=== PATIENT | female | born 1970 | race Asian ===

== ENCOUNTER 2023-08-18 08:23 | Outpatient (REF) | payer MEDICAID, OTHER, SELFPAY ==
[2023-08-18 15:04] LABS: Alanine Aminotransferase 23 U/L (0-31); Albumin Level 4.4 g/dL (3.5-5.0); Alkaline Phosphatase 50 U/L (39-117); Anion Gap 13 (12-20); Aspartate Amino Transferase 23 U/L (5-31); Bilirubin Direct 0.2 mg/dL (0.0-0.5); Bilirubin Total 0.6 mg/dL (0.0-1.0); Blood Urea Nitrogen 7 mg/dL (9-16); Calcium 9.8 mg/dL (8.4-10.2); Carbon Dioxide 27 mmol/L (22-29); Chloride 106 mmol/L (96-108); Cholesterol 286 mg/dL (<200); Estimated Glomerular Filt Rate > 60; Glucose Fasting 81 mg/dL (60-99); HDL Cholesterol 55 mg/dL (>40); LDL Cholesterol Calculated 195 mg/dL (<100); Potassium 4.1 mmol/L (3.3-5.1); Sodium 142 mmol/L (135-145); Total Protein 7.3 g/dL (6.5-8.0); Triglycerides 182 mg/dL (<150)
[2023-08-19 08:22] LABS: ~HepC Num1 0.04 S/CO (0.00-0.79); ~Hepatitis C Antibody Nonreactive (Nonreactive)
[2023-08-22 17:33] LABS: HIV RNA PCR Qn Copies Not Detected Copies/mL; HIV RNA PCR Qn Log Copies Not Detected Log cps/mL
== END 2023-08-18 08:24 | disposition home or self-care (01) ==
LOC: HO.CHCLDS 08:23
PROVIDERS: Visit Provider Student in an Organized Health Care Education/Training Program
DX: Z00.00 Encounter for general adult medical examination without abnormal findings (principal)
CPT/HCPCS: 36415; 80048; 80061; 80076; 86803; 87536; 87900

== ENCOUNTER 2025-04-16 08:11 | Outpatient (REF) | payer MEDICAID, OTHER, SELFPAY ==
--- OUTSIDE RECORDS SUMMARY | 2025-04-16 08:18 | XMS_ITS | Clinical Summary ---
Author Organization [employer] Address [address] [facility] 7t [place] [address] Care Team Providers Care Cargo Broker Name Role Phone Kelly Hsieh MD Primary Care Provider [phone] Allergies No known active allergies Medications multivitamin (Theragran) tablet Take 1 tablet by mouth at bed time. 03/08/2019 Active cyclobenzaprine (Flexeril) 10 MG tablet Take 1 tablet (10 mg) by mouth 3 times daily for 10 days. 30 tablet 08/03/2023 Active Magnesium 100 MG capsule Take 1 cap qhs 90 capsule 3 04/11/2025 Active Active Problems No known active problems Encounters Date Type Department Care Team Description 04/11/2025 10:45 AM EDT Office Visit [facility] [address] [place] [address] Kelly Hsieh MD Other fatigue (Primary Dx); Vitamin D deficiency 04/11/2025 Travel 04/08/2025 10:00 AM EDT Office Visit [facility] [address] [place] [address] Marissa Thomas 04/05/2025 11:00 AM EDT Office Visit [facility] [address] [place] [address] Charlene Gonzalez 04/05/2025 Telephone [facility] [address] [place] [address] Kelly Hsieh MD Appointment Request from Last 3 Months Immunizations Immunization Administration Dates Next Due Influenza injectable quadrivalent preservative f ree 10/18/2022,02/23/2019 Meningococcal MCV4, Unspecified 01/10/2019 Social History Tobacco Use Types Packs/Day Years Used Date Smoking Tobacco: Never Smokeless Tobacco: Never Tobacco Cessation:Counseling Given: Not Answered Alcohol Use Standard Drinks/Week Comments Defer 0 (1 standard drink = 0.6 oz pur e alcohol) Depression Answer Date Recorded Patient Health Questionnaire-9 Score 6 11/08/2024 Patient Health Questionnaire-9 Score 6 11/08/2024 Last PHQ-9: Questionnaire Data Not on file 1 01/09/2024 Housing Stability Answer Date Recorded What is your housing situation today? I have jorge little 10/29/[address] you li ve. Do you have problems with any of the following? None of the above 10/29/2024 Food Insecurity Answer Date Recorded Within the past 12 months, y ou worried that your food would run out before you got money to buy more: Never True 10/29/2024 Within the past 12 months,th e food you bought just didn't last and you didn't have enough money to get more: Never True 12/2023 Transportation Answer Date Recorded In the past 12 months, has l ack of transportation kept you from medical appts, meetings, work or from getting things needed for daily living? No 10/29/2024 Utilities Answer Date Recorded In the past 12 months, has t he electric, gas, oil or water company threatened to shut off services in your home? No 10/29/2024 Depression Answer Date Recorded Patient Health Questionnaire-2 Score 0 11/08/2024 Internet Access Answer Date Recorded Internet Access Q1 Yes 10/29/2024 Internet Access Q2 Not on file 10/29/2024 Comments No Sex and Gender Information Value Date Recorded Sex Assigned at Female 09/27/2022 10:27 AM EDT Legal Sex Female 10:27 AM EDT Gender Identity Female 09/27/2022 10:27 AM EDT Sexual Orientation Straight 09/27/2022 10 :27 AM EDT Last Filed Vital Signs Vital Sign Reading Time Taken Comments Blood Pressure 121/76 04/11/2025 10:50 AM EDT Pulse 65 04/11/2025 10:50 AM EDT Temperature 36.4 ??C (97.6 ??F) 04/11/2025 10:50 AM E DT Respiratory Rate 18 04/11/2025 10:50 AM EDT Oxygen Saturation 98% 04/11/2025 10:50 AM EDT Inhaled Oxygen Concentration - - Weight 57.6 kg (127 lb) 04/11/2025 10:50 AM EDT Height 152.4 cm (5') 04/11/2025 10:50 AM EDT Body Mass Index 24.8 04/11/2025 10:50 AM EDT Plan of Treatment Upcoming Encounters Date Type Department Care Team (Late st Contact Info) Description 05/21/2025 8:45 AM EDT Office Visit [facility] [address] [place] [address] Kelly Hsieh MD [address] [place] [address] Health Maintenance Due Date Last Done Comments CT Colonography 1970 Colonoscopy 1970 Dental X-Ray: Full Mouth 1970 FIT 1970 FOBT 1970 HIV Screening 1970 Sigmoidoscopy 1970 Alcohol/Substance Use Screening 1982 Hepatitis B Vaccines (1 of 3 - 19+ 3-dose series) 1989 Mammogram 2010 Pneumococcal Vaccine: 50+ Years (1 of 1 - PCV) 2020 Zoster Vaccines (1 of 2) 2020 Pap Smear 01/26/2025 01/26/2022 DTaP/Tdap/Td Vaccines (2 - Td or Tdap) 02/13/2025 02/13/2015 Influenza Vaccine (#1) 2025 10/18/2022, 2018 Postponed from 07/29/2024 (Patient Refused) Dental Prophylaxis 10/07/2025 04/05/2025, 1 12/15/2023, 07/07/2023 Dental Oral Exam 10/10/2025 04/08/2025, , 07/07/2023 Dental X-Ray: Bitewings 10/16/2025 10/15/20 24, 10/12/2024, 07/07/2023 SDOH Screening 10/29/2025 10/29/2024 COVID-19 Vaccine (5 - 4-25 season) 2025 10/18/2022, 09/30/2021, 03/12/2021, Additional history exists Postponed from 07/29/2024 (Patient Refused) Depression Screening 11/08/2025 11/08/2024, 11/08/20 24 Disability Screening 11/08/2025 11/08/2024 Tobacco Screening 04/08/2026 04/08/2025 Cervical Cancer Screening 01/26/2027 HPV/Cotest 01/26/2027 01/26/2022 Colorectal Cancer Screening 12/10/2027 FIT DNA/Cologuard 12/10/2027 12/10/2024 RSV Patients and Patients Aged 60 years or older (1 - 1-dose 75+ series) 2045 Meningococcal Vaccine Aged Out 01/10/2019 No trever gurvinder eligible based on patient's age to complete this topic Hepatitis C Screening Completed 08/18/2023 HIB Vaccines Aged Out No longer eligi ble based on patient's age to complete this topic HPV Vaccines Aged Out No longer eligi ble based on patient's age to complete this topic Hepatitis A Vaccines Aged Out No long er eligible based on patient's age to complete this topic IPV Vaccines Aged Out No longer eligi ble based on patient's age to complete this topic Meningococcal B Vaccine Aged Out No l onger eligible based on patient's age to complete this topic RSV under 20 months Aged Out No longe r eligible based on patient's age to complete this topic Rotavirus Vaccines Aged Out No longer eligible based on patient's age to complete this topic Procedures Procedure Name Priority Date/Time Associated Diagnosis Comments CASE PRESENTATION, DETAILED AND EXTENSIVE TREATMENT PLANNING Routine 04/08/2025 10:00 AM EDT PERIODIC ORAL EVALUATION - ESTABLISHED PATIENT Routine 04/08/2025 10:00 AM EDT ORAL HYGIENE INSTRUCTIONS Routine 04/05/2025 11:00 AM EDT CASE PRESENTATION, DETAILED AND EXTENSIVE TREATMENT PLANNING Routine 04/05/2025 11:00 AM EDT PROPHYLAXIS - ADULT Routine 04/05/2025 1 1:00 AM EDT LAB COLOGUARD?? COLON CANCER SCREEN Routine 12/10/2024 12:30 PM EST Screening for colon cancer BITEWINGS - 4 RADIOGRAPHIC IMAGES Routine 10/15/2024 10:30 AM EST HEPATITIS C AB W/REFL TO HCV RNA, QN, PCR Routine 08/18/2023 8:29 AM EDT PE (physical exam), annual THINPREP IMAGING PAP AND HPV MRNA E6/E7 WITH REFLEX TO HPV 16,18/45 Routine 01/26/2022 8:49 AM EST from Last 3 Months or Most Recently Relevant to Health Maintenance Results * Cologuard?? colon cancer screening (12/10/2024 12:30 PM EST) Cologuard Result Negative Negative 12/15/19 12:43 AM EST [facility] (CLIA #:[id number]) Comment: NEGATIVE TEST RESULT. A negative Cologuard result indicates a low likelihood that a colorectal cancer (CRC) or advanced adenoma (adenomatous polyps with more advanced pre-malignant features) ??is present. The chance that a person with a negative Cologuard test has a colorectal cancer is less than 1 in 1500 (negative predictive value >99.9%) or has an ??advanced adenoma is less than ??5.3% (negative predictive value 94.7%). These data are based on a prospective cross-sectional study of 10,000 individuals at average risk for colorectal cancer who were screened with both Cologuard and colonoscopy. (Holly Castellanos al, N Engl J Med 2014;370(14):1286- 1297) The normal value (reference range) for this assay is negative. COLOGUARD RE-SCREENING RECOMMENDATION: Periodic colorectal cancer screening is an important part of preventive healthcare for asymptomatic individuals at average risk for colorectal cancer. ??Following a negative Cologuard result, the [place] [employer] and U.S. Multi-Society Task Force screening guidelines recommend a Cologuard re-screening interval of 3 years. References: [place] [employer] Guideline for Colorectal Cancer Screening: https://www.cancer.org/cancer/vfkwi-iofhjz-upmbfa/hahvnubey-qgjjcgkqd-dfsdvfi/ac s-rec ommendations.html.; Obie DK, Baron CR, Richard ChristiansonK, Colorectal Cancer Screening: Recommendations for Physicians and Patients from the U.S. Multi-Society Task Force on Colorectal Cancer Screening , Am J Gastroenterology 2017; 112:3611-8407. TEST DESCRIPTION: Composite algorithmic analysis of stool DNA-biomarkers with hemoglobin immunoassay. ?? Quantitative values of individual biomarkers are not reportable and are not associated with individual biomarker result reference ranges. Cologuard is intended for colorectal cancer screening of adults of either sex, 45 years or older, who are at average-risk for colorectal cancer (CRC). Cologuard has been approved for use by the U.S. FDA. The performance of Cologuard was established in a cross sectional study of average-risk adults aged 50-84. Cologuard performance in patients ages 45 to 49 years was estimated by sub-group analysis of near-age groups. Colonoscopies performed for a positive result may find as the most clinically significant lesion: colorectal cancer [4.0%], advanced adenoma (including sessile serrated polyps greater than or equal to 1cm diameter) [20%] or non- advanced adenoma [31%]; or no colorectal neoplasia [45%]. These estimates are derived from a prospective cross-sectional screening study of 10,000 individuals at average risk for colorectal cancer who were screened with both Cologuard and colonoscopy. (Holly Asher. et al, N Engl J Med 2014;370(14):3804-3779.) Cologuard may produce a false negative or false positive result (no colorectal cancer or precancerous polyp present at colonoscopy follow up). A negative Cologuard test result does not guarantee the absence of CRC or advanced adenoma (pre-cancer). The current Cologuard screening interval is every 3 years. ([place] [employer] and U.S. Multi-Society Task Force). Cologuard performance data in a 10,000 patient pivotal study using colonoscopy as the reference method can be accessed at the following location: [email or web address].com/results. Additional description of the Cologuard test process, warnings and precautions can be found at www.cologYesmailrd.com. Stool specimen (specimen) Rectal contents / Unknown 12/10/2024 12:30 PM EST 12/11/2024 11:01 AM EST us Kelly Hsieh MD LAB MOLECULAR DIAGNOSTICS ORDERA BLES Final Result [facility] (CLIA #:[id number]) [place] [address], * Hepatitis C Antibody with Reflex to HCV, RNA, Quantitative, Real-Time PCR (08/18/2023 8:29 AM EDT) Hepatitis C Antibody Nonreactive Nonreactive [facility] Comment:Antibodies to HCV no t detected; does not exclude early acuteHCV infection. Blood Venous blood specimen / Unknown 08/18/2023 8:29 AM EDT 08/18/2023 2:08 PM EDT Kelly Hsieh MD LAB BLOOD ORDERABLES Final Resul t Performing Organization Address [facility] Co de Phone Number [facility] [address] [place] [phone] * THINPREP TIS PAP AND HPV mRNA E6/E7 WITH REFLEX TO HPV 16,18/45 (01/26/2022 8:49 AM EST) Clinical Information: None given [facility] COMMENT SEE COMMENT [facility] Comment: EXPLANATORY NOTE: ? The Pap is a screening test for cervical cancer. It is ?? not a diagnostic test and is subject to false negative ?? and false positive results. It is most reliable when a ?? satisfactory sample, regularly obtained, is submitted ?? with relevant clinical findings and history, and when ?? the Pap result is evaluated along with historic and ?? current clinical information. ?? COMMENT: This Pap test has been evaluated with computer assisted technology. [facility] Van Cdl Driver: SEE COMMENT [facility] Comment: GSG, CT(ASCP) CT screening location: [address] ??[address] HPV nRNA E6/E7 Not Detected Not Detected [facility] Comment: Methodology: Marble Coper-Mediated Amplification This assay detects E6/E7 viral messenger RNA (mRNA) from 14 high-risk HPV types (16,18,31,33,35,39,45,51,52,56,58,59,66,68). ? The analytical performance characteristics of this assay have been determined by [employer]. The modifications have not been cleared or approved by the FDA. This assay has been validated pursuant to the CLIA regulations and is used for clinical purposes. ?? 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 [facility] Interpretation/Re sult: Negative for intraepithelial lesion or malignancy. [facility] LMP: 01/10/22 [facility] Prev. BX: NONE GIVEN [facility] Prev. PAP: 2015 [facility] SOURCE: None given [facility] Statement Of Adequacy: SEE COMMENT [facility] Comment: Satisfactory for evaluation. Endocervical/transformation zone component present. 01/26/2022 8:49 AM EST us Urmila Burnett [facility] PATHOLOGY ORDERABLES Final Result [facility] [address] from Last 3 Months or Most Recently Relevant to Health Maintenance Insurance [facility] DENTAL - HSN PARTIAL (MEDICAID) Care Teams Cargo Broker Relationship Specialty Start Date End Date Kelly Hsieh MD [address] [place] [phone] PCP - General Family Medicine 12/07/21
--- OUTSIDE RECORDS SUMMARY | 2025-04-16 08:18 | XMS_ITS | Encounter Summary ---
Author Organization [employer] Address [address] [facility] 7t [place] [address] Care Team Providers Care Demurrage Worker Name Role Phone Kelly Hsieh MD Primary Care Provider [phone] Encounter Details Date Type Department Care Team (Latest Contact Info) Description 08/02/[address] [facility] CONVERSIONS Dental, Provider, DDS Social History Tobacco Use Types Packs/Day Years Used Date Smoking Tobacco: Never Assessed Comments Unknown Sex and Gender Information Value Date Recorded Sex Assigned at Female 09/27/2022 10:27 AM EDT Legal Sex Female 10:27 AM EDT Gender Identity Female 09/27/2022 10:27 AM EDT Sexual Orientation Straight 09/27/2022 10 :27 AM EDT documented as of this encounter Plan of Treatment Upcoming Encounters Date Type Department Care Team (Late st Contact Info) Description 05/21/2025 8:45 AM EDT Office Visit [facility] MED & PEDS [address] [place] [address] Kelly Hsieh MD [address] [place] [address] documented as of this encounter Visit Diagnoses Not on filedocumented in this encounter Care Teams Demurrage Worker Relationship Specialty Start Date End Date Kelly Hsieh MD [address] [place] [phone] PCP - General Family Medicine 12/07/21 documented as of this encounter
--- OUTSIDE RECORDS SUMMARY | 2025-04-16 08:18 | XMS_ITS | Encounter Summary ---
Author Organization [employer] Address [address] [facility] [address] [place] [address] Care Team Providers Care Roller Operator Name Role Phone Kelly Hsieh MD Primary Care Provider [phone] Encounter Details Date Type Department Care Team (Latest Contact Info) Description 04/11/2025 Travel Social History Tobacco Use Types Packs/Day Years Used Date Smoking Tobacco: Never Smokeless Tobacco: Never Alcohol Use Standard Drinks/Week Comments Defer 0 [...] Description 05/21/2025 8:45 AM EDT Office Visit [facility] MED & PEDS [address] [place] [address] Kelly Hsieh MD [address] [place] [address] documented as of this encounter Visit Diagnoses Not on filedocumented in this encounter Additional Health Concerns Assessment Noted Time PHQ-9 Depression Total Score: 6 11/08/20 24 9:52 AM EST documented as of this encounter Care Teams Roller Operator Relationship Specialty Start Date End Date Kelly Hsieh MD [address] [place] [phone] PCP - General Family Medicine 12/07/21 documented as of this encounter
--- OUTSIDE RECORDS SUMMARY | 2025-04-16 08:18 | XMS_ITS | Encounter Summary ---
Author Organization [employer] Address [address] [facility] [address] [place] [address] Care Team Providers Care Optician Manager Name Role Phone Kelly Hsieh MD Primary Care Provider [phone] Reason for Visit * Reason Comments Fatigue joint pain warts Encounter Details Date Type Department Care Team ([facility] st Contact Info) Description 04/11/2025 10:45 AM EDT Office Visit [facility] MED & PEDS [address] [place] [address] Kelly Hsieh MD [address] [place] [address] Other fatigue (Primary Dx); Vitamin D deficiency Social History Tobacco Use Types Packs/Day Years [...] AM EDT documented as of this encounter Last Filed Vital Signs Vital Sign Reading [...] Mass Index 24.8 04/11/2025 10:50 AM EDT documented in this encounter Progress Notes * Kelly Hsieh MD - 04/11/2025 10:45 AM EDT Subjective Patient ID: Christopher Pereira is a 54 y.o. female who presents for fatigue Fatigue This is a new problem. The current episode started more than 1 month ago. The problem occurs constantly. Associated symptoms include fatigue. Pertinent negatives include no abdominal pain, anorexia, arthralgias, change in bowel habit, chest pain, chills, congestion, coughing, diaphoresis, fever, headaches, joint swelling, nausea, sore throat, swollen glands, urinary symptoms, vertigo, visual change, vomiting or weakness. Review of Systems Constitutional: Positive for fatigue. Negative for chills, diaphoresis and fever. HENT: Negative for congestion and sore throat. Respiratory: Negative for cough. Cardiovascular: Negative for chest pain. Gastrointestinal: Negative for abdominal pain, anorexia, change in bowel habit, nausea and vomiting. Musculoskeletal: Negative for arthralgias and joint swelling. Neurological: Negative for vertigo, weakness and headaches. Objective Physical Exam Constitutional: Appearance: Normal appearance. Cardiovascular: Rate and Rhythm: Normal rate and regular rhythm. Pulses: Normal pulses. Heart sounds: Normal heart sounds. Pulmonary: Effort: Pulmonary effort is normal. Abdominal: General: Abdomen is flat. Neurological: Mental Status: She is alert. Assessment/Plan Diagnoses and all orders for this visit: Other fatigue Comments: Labs ordered advised healthy diet and regular exercise Started on Daily magnesium Orders: - Basic Metabolic Panel; Future - Lipid Panel, Standard; Future - Hepatic Function Panel; Future - TSH with Reflex to Free T4; Future - CBC auto differential; Future Vitamin D deficiency Comments: Labs ordered advised daily Vit D with Conrad Orders: - 25 OH Vitamin D Other orders - Magnesium 100 MG capsule; Take 1 cap qhs documented in this encounter Plan of Treatment Upcoming Encounters Date Type Department Care Team (Late st Contact Info) Description 05/21/2025 8:45 AM EDT Office Visit [facility] MED & P[facility] [address] [place] [address] Kelly Hsieh MD [address] [place] [address] Scheduled Orders Name Type Priority Associated Diagnoses Orde r Schedule Basic Metabolic Panel Lab Routine Other fatigue Expected: 04/11/2025 (Approximate), Expires: 04/11/2026 Lipid Panel, Standard Lab Routine Other fatigue Expected: 04/11/2025 (Approximate), Expires: 04/11/2026 Hepatic Function Panel Lab Routine Other fatigue Expected: 04/11/2025 (Approximate), Expires: 04/11/2026 TSH with Reflex to Free T4 Lab Routine Other fatigue Expected: 04/11/2025 (Approximate), Expires: 04/11/2026 25 OH Vitamin D Lab Routine Vitamin D deficiency Ordered: 04/11/2025 CBC auto differential Lab Routine Other fatigue Expected: 04/11/2025 (Approximate), Expires: 04/11/2026 documented as of this encounter Visit Diagnoses Diagnosis Other fatigue- Primary Vitamin D deficiency documented in this encounter Additional Health Concerns Assessment Noted Time PHQ-9 Depression Total Score: 6 11/08/20 24 9:52 AM EST documented as of this encounter Care Teams Optician Manager Relationship Specialty Start Date End Date Kelly Hsieh MD [address] [place] [phone] PCP - General Family Medicine 12/07/21 documented as of this encounter
--- OUTSIDE RECORDS SUMMARY | 2025-04-16 08:19 | XMS_ITS | Encounter Summary ---
Author Organization [employer] Address [address] [facility] 7t [place] [address] Care Team Providers Care Cotton Sampler Name Role Phone Kelly Hsieh MD Primary Care Provider [phone] Encounter Details Date Type Department Care Team (Latest Contact Info) Description 10/28/2021 Abstract [facility] CONVERSIONS Dental, Provider, DDS Social History Tobacco [...] Description 05/21/2025 8:45 AM EDT Office Visit [facility] MED & PEDS [address] [place] [address] Kelly Hsieh MD [address] [place] [address] documented as of this encounter Visit Diagnoses Not on filedocumented in this encounter Care Teams Cotton Sampler Relationship Specialty Start Date End Date Kelly Hsieh MD [address] [place] [phone] PCP - General Family Medicine 12/07/21 documented as of this encounter
[2025-04-16 14:19] LABS: MANUAL DIFF FLAG NO
[2025-04-16 14:29] LABS: Basophils Absolute Auto 0.1 X10*3/uL (0.0-0.2); Basophils Percent Auto 0.8 % (0-2); Eosinophils Absolute Auto 0.3 X10*3/uL (0.0-0.4); Eosinophils Percent Auto 4.1 % (0-4); Hematocrit 43.6 % (37.0-47.0); Hemoglobin 13.6 g/dl (12.0-16.0); Imm Gran Abs Auto 0.01 X10*3/uL (0.00-0.03); Imm Gran Pct Auto 0.2 % (0.0-0.4); Lymphocytes Absolute Auto 2.4 X10*3/uL (1.2-4.9); Lymphocytes Percent Auto 35.8 % (20-40); Mean Corpuscular HGB Conc 31.2 g/dl (31.0-35.0); Mean Corpuscular Hemoglobin 25.7 pg (27.0-33.0); Mean Corpuscular Volume 82.4 fL (80.0-98.0); Mean Platelet Volume 12.1 fL (9.4-12.3); Monocytes Absolute Auto 0.5 X10*3/uL (0.1-1.2); Monocytes Percent Auto 7.1 % (2-11); Neutrophils Absolute Auto 3.5 x10*3/uL (2.0-8.3); Platelet Count 236 X10*3/uL (160-400); Red Blood Count 5.29 X10*6/uL (4.20-5.50); Red Cell Distribution Width 13.9 % (11.0-16.0); White Blood Count 6.6 X10*3/uL (4.8-10.8)
[2025-04-16 14:59] LABS: Alanine Aminotransferase 34 U/L (0-31); Albumin Level 4.4 g/dL (3.5-5.0); Alkaline Phosphatase 68 U/L (39-117); Anion Gap 13 (12-20); Aspartate Amino Transferase 31 U/L (5-31); Bilirubin Direct 0.2 mg/dL (0.0-0.5); Bilirubin Total 0.6 mg/dL (0.0-1.0); Blood Urea Nitrogen 8 mg/dL (9-16); Calcium 9.5 mg/dL (8.4-10.2); Carbon Dioxide 27 mmol/L (22-29); Chloride 105 mmol/L (96-108); Cholesterol 273 mg/dL (<200); Estimated Glomerular Filt Rate > 60; Glucose Random 89 mg/dL (60-115); HDL Cholesterol 46 mg/dL (>40); LDL Cholesterol Calculated 170 mg/dL (<100); Sodium 141 mmol/L (135-145); Total Protein 7.4 g/dL (6.5-8.0); Triglycerides 287 mg/dL (<150)
[2025-04-16 15:14] LABS: TSH reflex Free T4 3.24 uIU/mL (0.32-4.0)
== END 2025-04-16 08:12 | disposition home or self-care (01) ==
LOC: HO.CHCLDS 08:11
PROVIDERS: Visit Provider Student in an Organized Health Care Education/Training Program
DX: R53.83 Other fatigue (principal)
CPT/HCPCS: 36415; 80048; 80061; 80076; 84443; 85025